=== PATIENT | female | born 1955 | race African-American/Black ===

== ENCOUNTER 2017-02-17 17:56 | Inpatient (IN) | payer OTHER ==
[~2017-02-17] VITALS: Ht 154.9 cm; Wt 51.7 kg
--- NOTE | ~2017-02-17 | HC ---
[facility] [place] [address] CONSULTATION Name: BRANDON CAMILO Room #: 457-P [facility] IN M.R.#: [id number] Admission: 02/17/17 Attend Phys: Krishan Sebastian MD Discharge: 02/20/17 Date of : 53 Report #: [id number] THIS REPORT FOR: //name// CC: Krishan Spence DATE OF SERVICE: 02/19/2017 HISTORY OF PRESENT ILLNESS: This is a 61-year-old female patient who was reevaluated by me today for altered mental status as well as left-sided weakness. She is a poor historian and does not know the duration of this. She indicated that it has come on recently. Nothing makes it better or worse. It came on spontaneously. That has not progressed any. She does not believe she has much alteration of mental status but other people have noticed it. PHYSICAL EXAMINATION: NEUROLOGICAL: Indicates that she is alert. She is responsive. Her speech looks intact and her memory and fund of knowledge is at her baseline. Cranial nerve examination 2 through 12 was attempted. It still shows question of weakness on the left side of the face. Rest of it is unremarkable. His neuromuscular examination showed weakness on the left side of the body, but is otherwise unremarkable. CARDIOVASCULAR: She does not appear to have any definite evidence for any abnormality of the heart sounds or any loud murmur. RESPIRATORY: She has no respiratory difficulty. There are no significant rhonchi. VITAL SIGNS: Her blood pressure is 154/71, respirations 16, pulse is 61 and temperature is 98.3. LABORATORY DATA: Her MRI of the brain was reviewed and I discussed with her. It does show pretty extensive changes. Sometime a small change there would be difficult to see. IMPRESSION: There is no definite diagnosis, which is present in this patient and she feels better. She moves the left side better. It is possible she had an ischemic went on the left side and difficult to be certain. I discussed the situation with her and I told her that instead of doing some more workup, we will just observe her and see how she does with the physical and occupational therapy. We got such an extensive changes in the brain, I did order some more blood workup to look for any predisposition for vascular problems as well as an echocardiogram. [address] [address] CONSULTATION Name: BRANDON CAMILO Room #: 457-[facility] IN [facility].#: [id number] Admission: 02/17/17 Attend Phys: Krishan Sebastian MD Discharge: 02/20/17 Date of : 53 Report #: [id number] Thank you very much for this referral and will follow the patient along with you. <ELECTRONICALLY SIGNED> By: Kennedy Vincent MD 02/22/17 1926 1835 1904 Kennedy Vincent MD /nt
--- NOTE | ~2017-02-17 | HC ---
[facility] [place] [address] CONSULTATION Name: BRANDON CAMILO Room #: 457-P [facility] IN M.R.#: [id number] Admission: 02/17/17 Attend Phys: Krishan Sebastian MD Discharge: 02/20/17 Date of : 53 Report #: [id number] THIS REPORT FOR: //name// CC: Krishan Spence DATE OF SERVICE: 02/18/2017 HISTORY OF PRESENT ILLNESS: This is a 61-year-old female patient who was evaluated by me for weakness on the left side. This patient is a poor historian and none of the family member is available. Part of the history is taken from the record and part of the history is taken by talking to the patient. She was brought to Emergency Room because she was not feeling right. She also had some ambulation difficulty and weakness on the left side was noticed. It is not certain how long this weakness is going on and the duration is not clear. The weakness is moderate what she also has a neglect there and difficulty with walking secondary to this weakness and neglect is significant. She does not know anything which makes it better or worse. She does not think she is becoming worse. It came spontaneously without any trauma and is not associated with any scene or any other abnormality. Her history is confusing that before this happened, she was also using a cane or a walker, but she cannot tell me why she was doing that. REVIEW OF SYSTEMS: Indicates she had a brain tumor. It is not clear what the brain tumor was. She thinks she was in [facility] and it was about 2-3 years ago. She has a history of bipolar disorder. She had a vocal cord paralysis and she had a tube put in according to her. It is not clear why this vocal cord paralysis occurred in this patient. I carried out this 14-point review of systems in this patient, but that is all I can get. She denies any new eye, ENT, cardiac, respiratory, GI, , musculoskeletal, constitutional, dermatological, hematological symptom. She does complain of psychiatric symptom, but she does not think she is any different than her baseline and that is a different history than she provided to other people who took the history in this patient. She does not have any new allergic symptoms or any new throat symptoms. PAST MEDICAL HISTORY: Positive for a brain tumor. FAMILY HISTORY: Negative for early age stroke. SOCIAL HISTORY: Indicates that she denies the use of tobacco, but does have a history of using alcohol. It is not clear from her description how much she drinks alcohol. PHYSICAL EXAMINATION: Indicates she is alert. She is responsive. She was able [address] [address] CONSULTATION Name: BRANDON CAMILO Room #: 457-P [facility] IN M.R.#: [id number] Admission: 02/17/17 Attend Phys: Krishan Sebastian MD Discharge: 02/20/17 Date of : 53 Report #: [id number] to tell me what month, what date it was and she was able to name the president. Memory is somewhat diminished, but she was still able to recall many of the events. Similarly fund of knowledge is somewhat diminished, but I do not know whether it falls in the dementia range or not, she will need more workup for that. Her speech looks intact. Cranial nerve examination 2-12 is unremarkable except for possible left facial palsy. Neuromuscular examinations indicate she is weak on the left side. I believe she has a position sense, but I am not certain because she could not cooperate. Reflexes are slightly asymmetrical and tone looks symmetrical. There is no cerebellar sign. There is no papilledema. There is no carotid bruit. There is no meningeal sign. She is reasonably well-built individual who does not have any dysmorphic features of eyes, ears and face. Her hearing and visions are adequate. Her affect looks flat. She speaks very softly because of previous vocal cord paralysis. She does not have any thyroid mass. Cardiac examination demonstrates unremarkable heart sounds and no murmur. No respiratory difficulty was noticed and there were no rhonchi on either side. Her pulses are difficult to feel, but she has no edema, cyanosis or jaundice. Blood pressure is 133/49, respiration is 16, pulse is 81, temperature is 97.9. I did not make her walk because she looks weak on the left side and we will ask the physical therapy help to do that. LABORATORY DATA: Indicate white count is normal at 6.4. Her sodium is 146, which is a trace high. It is not sure whether she was hydrating her well or not. She did have a CT scan of the head. CT scan of the head was reviewed and she does have a suspicion for a stroke on the right side and that will correlate with this patient's symptoms. IMPRESSION: 1. Possible right hemispheric cerebrovascular accident causing neglect and weakness on the left side. 2. History of bipolar. 3. History of tumor, but I reviewed the patient's record. Neither she shows tumor on the present CT nor the one which done a few years ago at this place. That is an incidental history which need to be readdressed later on if we can find the records from other facility. 4. Her rest of the workup will depend upon what we find in this patient. We may have to work up further for her altered mental status depending upon what the workup shows. She is on multiple medications including Topamax and clonazepam and if she takes the dosing properly, she can get confused. I am not sure why she is on those medications because she cannot tell and hopefully, we can contact the family to get further history. RECOMMENDATIONS: 1. MRI of the brain. 2. MRA of the head. [facility] [address] [place] [address] CONSULTATION Name: BRANDON CAMILO Room #: 457-P [facility] IN [facility].#: [id number] Admission: 02/17/17 Attend Phys: Krishan Sebastian MD Discharge: 02/20/17 Date of : 53 Report #: [id number] 3. MRA of the neck. 4. EEG. 5. TSH and vitamin B12. 6. We will reevaluate to see if we need an MRI of the brain with contrast in this patient. 7. If the stroke is confirmed, then she will need for workup for her stroke. I discussed all of it with the patient and discussed the plan we are going to follow. She understands it and she would like to continue with this plan and we will discuss tomorrow with her once the results of this test are available. Thank you very much for this referral. <ELECTRONICALLY SIGNED> By: Kennedy Vincent MD 02/22/17 1926 1007 1231 Kennedy Vincent MD /nt
--- NOTE | ~2017-02-17 | HC ---
[facility] [place] [address] CONSULTATION Name: BRANDON CAMILO Room #: 457-P [facility] IN ..#: [id number] Admission: 02/17/17 Attend Phys: Krishan Sebastian MD Discharge: 02/20/17 Date of : 54 Report #: [id number] THIS REPORT FOR: //name// CC: Krishan Spence HISTORY OF PRESENT ILLNESS: The patient is a 61-year-old female who was admitted with left-sided weakness, noted to have dizziness and falling. CT of the head was negative for acute changes. She is going to be undergoing an MRI scan. PAST MEDICAL HISTORY: Includes a brain tumor in approximately 2009, for which she apparently underwent Cyberknife surgery on the left. Apparently, this was done at [facility], although she was unsure of it was [facility] or [facility]. She does have a history of bipolar disorder and paralyzed vocal cord. MEDICATIONS: Please see the full medication listing. SOCIAL HISTORY: Living in an apartment alone. Did not utilize gait aids. Apparently, there was a caregiver that came daily to help with chores. She was noted be independent with ADLs. She does have a son and daughter and grand kids in the area. REVIEW OF SYSTEMS: Did not offer any current complaints of chest pain, shortness of breath or abdominal discomfort. No focal extremity pain complaints. She feels she still has left-sided weakness and has not significantly improved or change since admission. PHYSICAL EXAMINATION: GENERAL: A 61-year-old slender -[place] female, in no obvious distress. She is only a fair historian. VITAL SIGNS: Last recorded temperature 97.9, pulse 81, respirations 16, and blood pressure 133/49. NEUROLOGIC: The patient is alert. Facies appeared to be symmetric. EOMs appeared to be full. EXTREMITIES: She has functional range of motion of both upper and lower extremities. Appears to have strength a grade 4- to 4/5, right upper and right lower extremity. Left upper extremity is probably a grade 4-, left lower extremity is 4-. She did reasonably well with [id number]. There was no clonus at the ankle. Sensory examination, there might be slight decreased left side with hemisensory testing. She was contact guard with sit to stand. She ambulated 6 steps handheld assistance. Therapy thought she might have some right-sided neglect. ASSESSMENT: A 61-year-old white female with the following problem list: 1. Left-sided weakness with dizziness and falling. Work[place] [address] CONSULTATION Name: BRANDON CAMILO Room #: 457-P [facility] IN ..#: [id number] Admission: 02/17/17 Attend Phys: Krishan Sebastian MD Discharge: 02/20/17 Date of : 53 Report #: [id number] currently pending. 2. Past history of a brain tumor, apparently underwent CyberKnife surgery on the left side in approximately 2009. 3. Prior history of a paralyzed vocal cord. 4. History of bipolar disorder. 5. Past history of a brain aneurysm. 6. Hypertension. PLAN: Work up is underway as noted above. Therapy evaluations are underway. We will be glad to follow along regarding her rehab therapy needs. Note that PT and speech are involved and have added OT orders. <ELECTRONICALLY SIGNED> By: Jewel Nugent MD 02/22/17 1539 1128 1351 Jewel Nugent MD /nt
--- NOTE | ~2017-02-17 | EKG ---
[address] [place] [address] ELECTROCARDIOGRAM REPORT Name: BRANDON CAMILO Room #: 457-P ADM IN M.R.#: [id number] Admission: 02/17/17 Attend Phys: Krishan Sebastian MD Discharge: Date of : 53 Report #: [id number] THIS REPORT FOR: //name// [facility] ED Test Date: 2017-02-17 Test Time: 18:16:57 Pat Name: BRANDON CAMILO Department: Room: [facility] Gender: F Instrument Repair Specialist: lavern : 1955 Requested By: Ronna Márquez Order Number: [id number] MD: Chris Bailey Measurements Intervals [place] Rate: 93 P: 45 IA: 167 QRS: 52 QRSD: 78 T: 31 QT: 357 QTc: 445 Interpretive Statements Sinus rhythm No significant abnormality Baseline wander in lead(s) V2 No previous ECG available for comparison Electronically Signed On 02-18-2017 9:17:12 CDT by Chris Bailey [email or web address] <ELECTRONICALLY SIGNED> By: Chris Bailey MD, [facility] 02/18/17 0917 D: 03/1815 15 Chris Bailey MD, FACC /EPI
[~2017-02-17 17:56] MED LIST: CLONAZEPAM 1 MG1 M1 PO; COZAAR 50 MG TA50 M2 PO; PRAZOSIN HCL1 MG PO; TOPAMAX100 MG PO; TOPROL XL50 MG PO; TRAZODONE 150150 M1 PO
[2017-02-17 18:01] VITALS: BP 145/80
[2017-02-17 19:18] LABS: ABSOLUTE NEUTROPHILS 3.3 thou/uL (1.4-8.2); BASOPHILS 0.7 % (0.0-2.0); HEMATOCRIT 33.6 % (37.0-47.0); HEMOGLOBIN 10.7 gm/dL (12.0-15.0); LYMPHOCYTES 34.5 % (24.0-44.0); MCH 24.3 pg (26.0-34.0); MONOCYTES 10.5 % (1.0-8.0); PLATELET COUNT 198 thou/uL (150-400); POLYS 51.3 % (36.0-66.0); RBC 4.42 mil/uL (4.20-5.00); WBC 6.4 thou/uL (4.0-11.0)
[2017-02-17 19:22] LABS: MANUAL DIFF NO
[2017-02-17 19:29] LABS: PROTIME 10.8 Seconds (9.3-11.4)
[2017-02-17 19:35] LABS: ALBUMIN 3.1 g/dL (3.4-5.0); ALKALINE PHOSPHATASE 73 U/L (46-116); ANION GAP 7 mmol/L (7-16); BUN 11 mg/dL (7-18); CHLORIDE 109 mmol/L (98-107); CO2 30 mmol/L (21-32); CREATININE 0.8 mg/dL (0.6-1.3); GLUCOSE 101 mg/dL (70-99); POTASSIUM 3.7 mmol/L (3.5-5.1); SGOT 19 U/L (15-37); SGPT 32 U/L (30-65); SODIUM 146 mmol/L (136-145); TOTAL BILIRUBIN 0.1 mg/dL (<0.1-1.0); TOTAL PROTEIN 6.2 g/dL (6.4-8.2); TROPONIN-I < 0.04 ng/mL (<0.04-0.07)
[2017-02-17 20:00] VITALS: BP 126/57
[2017-02-17 20:23] LABS: URINE BILIRUBIN NEGATIVE (Negative); URINE BLOOD NEGATIVE (Negative); URINE COLOR YELLOW; URINE GLUCOSE-RANDOM* NEGATIVE (Negative); URINE KETONES NEGATIVE (Negative); URINE NITRITE NEGATIVE (Negative); URINE PROTEIN (DIPSTICK) NEGATIVE (Negative); URINE SPECIFIC GRAVITY 1.025 (1.003-1.035)
[2017-02-17 22:44] LABS: TSH 0.454 uIU/mL (0.358-3.740)
[2017-02-18] VITALS: BP 117/41
[2017-02-18 04:00] VITALS: BP 131/57
[2017-02-18 07:28] VITALS: BP 133/49
[2017-02-18 11:54] VITALS: BP 127/61
[2017-02-18 15:26] VITALS: BP 148/64
[2017-02-18] MEDS ORDERED: MELATONIN3 MG PO (17:07)
[2017-02-18] MEDS ORDERED: CELEXA20 MG PO (17:08)
[2017-02-18] MEDS ORDERED: BENZTROPINE MES1 MG PO (17:08)
[2017-02-18] MEDS ORDERED: HALDOL 0.5 MG0.5 MG PO (17:09)
[2017-02-18 19:47] VITALS: BP 132/59
[2017-02-19 03:34] VITALS: BP 128/69
[2017-02-19 05:33] LABS: HEMATOCRIT 33.2 % (37.0-47.0); HEMOGLOBIN 10.5 gm/dL (12.0-15.0); MCH 24.2 pg (26.0-34.0); MCHC 31.7 g/dL (28.0-37.0); MCV 76.3 fL (80.0-100.0); RBC 4.35 mil/uL (4.20-5.00); RDW 14.7 % (10.5-14.5); WBC 5.5 thou/uL (4.0-11.0)
[2017-02-19 05:55] LABS: CALCIUM 8.2 mg/dL (8.5-10.1); CREATININE 0.6 mg/dL (0.6-1.3); POTASSIUM 3.8 mmol/L (3.5-5.1)
[2017-02-19 08:12] VITALS: BP 145/56
[2017-02-19 12:18] VITALS: BP 141/62
[2017-02-19 15:23] VITALS: BP 154/71
[2017-02-19 19:59] VITALS: BP 146/72
[2017-02-19] MEDS ORDERED: SEROQUEL 50 MG50 MG PO ×2 (21:16)
[2017-02-20] MEDS ORDERED: SEROQUEL 50 MG50 MG PO ×2 (00:06→00:10)
[2017-02-20] MEDS ORDERED: LAMICTAL100 MG PER TUBE (00:26)
[2017-02-20] MEDS ORDERED: TOPROL XL25 MG PO (00:28)
[2017-02-20 04:00] VITALS: BP 132/64
[2017-02-20 06:42] LABS: HEMATOCRIT 31.4 % (37.0-47.0); HEMOGLOBIN 10.1 gm/dL (12.0-15.0); MCH 24.4 pg (26.0-34.0); MCHC 32.1 g/dL (28.0-37.0); MCV 75.8 fL (80.0-100.0); RBC 4.15 mil/uL (4.20-5.00); RDW 14.2 % (10.5-14.5); WBC 5.9 thou/uL (4.0-11.0)
[2017-02-20 06:58] LABS: CALCIUM 8.2 mg/dL (8.5-10.1); CREATININE 0.6 mg/dL (0.6-1.3); POTASSIUM 3.7 mmol/L (3.5-5.1)
[2017-02-20 08:29] VITALS: BP 142/70
[2017-02-20 10:22] VITALS: BP 142/70
[2017-02-20 12:58] VITALS: BP 137/59
[2017-02-20 14:48] VITALS: BP 142/70
== END 2017-02-20 16:33 | disposition home health service (06) | DRG 69 ==
LOC: ER 17:56 → EROBS 19:34 → 4W 19:34
PROVIDERS: Hospitalist; Internal Medicine; Nurse Practitioner; Physician Assistant
DX: G45.9 Transient cerebral ischemic attack, unspecified (principal); G92 Toxic encephalopathy; E44.1 Mild protein-calorie malnutrition; F31.9 Bipolar disorder, unspecified; J38.00 Paralysis of vocal cords and larynx, unspecified; I10 Essential (primary) hypertension; F41.9 Anxiety disorder, unspecified; R13.10 Dysphagia, unspecified; I67.1 Cerebral aneurysm, nonruptured; Z88.6 Allergy status to analgesic agent; W18.39XA Other fall on same level, initial encounter; Z88.0 Allergy status to penicillin; Z85.841 Personal history of malignant neoplasm of brain; Y93.89 Activity, other specified; Y92.89 Other specified places as the place of occurrence of the external cause; Z93.1 Gastrostomy status; Y99.8 Other external cause status
CPT/HCPCS: 10045; 10047

== ENCOUNTER → 2017-10-11 | Outpatient (CLI) | payer OTHER ==
[~2017-10-11] MED LIST changes: +BENZTROPINE MES1 MG PO; +CELEXA20 MG PO; +DURAGESIC1 EAC1 TRANSDERM; +HALDOL 0.5 MG0.5 MG PO; +LAMICTAL100 MG PER TUBE; +MELATONIN3 MG PO; +SEROQUEL 50 MG50 MG PO; +TOPROL XL25 MG PO
== END ==
LOC: RAD 10:49
DX: M16.12 Unilateral primary osteoarthritis, left hip (principal)

== ENCOUNTER 2019-03-16 13:59 | Emergency (ER) | payer OTHER ==
[~2019-03-16] VITALS: Ht 152.4 cm; Wt 47.2 kg
[~2019-03-16 13:59] MED LIST changes: +ACETAMINOPHEN325 M1 PO; +BANOPHEN25 M1 PO; +CLONAZEPAM 0.50.5 M1 PO; +COZAAR 25 MG TA25 M2 PO; +DEPAKOTE 250MG250 M1; +DEPAKOTE ER500 MG PO; +HALOPERIDOL 1 MG1 MG PO; -LAMICTAL100 MG PER TUBE; +LAMICTAL100 MG PO; +LITHIUM CARBON150 MG PO; +PRAZOSIN 1 MG CA1 MG PO; +PRENATAL PO; +REMERON15 MG PO; +SEROQUEL 100 M100 M1 PO; +TRAZODONE HCL50 MG PO; +VITAMIN B-1100 M2 PO; +VITAMIN D1000 UNI1 PO; +ZOFRAN ODT4 M1 PO
[2019-03-16] MEDS ORDERED: TRAZODONE HCL100 MG PO (14:27)
[2019-03-16] MEDS ORDERED: COZAAR 25 MG TA25 M1 PO (14:27)
[2019-03-16] MEDS ORDERED: PROZAC20 MG PO (14:27)
[2019-03-16] MEDS ORDERED: LOPRESSOR50 PO (14:27)
[2019-03-16] MEDS ORDERED: MINIPRESS1 MG PO (14:28)
[2019-03-16] MEDS ORDERED: REMERON15 MG PO (14:28)
[2019-03-16 15:17] LABS: HEMOGLOBIN 12.6 gm/dL (12.0-15.0); MCV 78.7 fL (80.0-100.0); WBC 6.2 thou/uL (4.0-11.0)
[2019-03-16 15:19] LABS: HEMATOCRIT 38.9 % (37.0-47.0); MCH 25.5 pg (26.0-34.0); MCHC 32.4 g/dL (28.0-37.0); PLATELET COUNT 191 thou/uL (150-400); RBC 4.94 mil/uL (4.20-5.00); RDW 16.9 % (10.5-14.5)
[2019-03-16 15:27] LABS: ANION GAP 12 mmol/L (7-16); BUN 17 mg/dL (7-18); CALCIUM 9.3 mg/dL (8.5-10.1); CHLORIDE 108 mmol/L (98-107); CO2 25 mmol/L (21-32); CREATININE 0.7 mg/dL (0.6-1.0); GLUCOSE 82 mg/dL (74-106); POTASSIUM 4.3 mmol/L (3.5-5.1); SODIUM 145 mmol/L (136-145)
[2019-03-16 15:37] LABS: ALBUMIN 3.8 g/dL (3.4-5.0); SGOT 22 U/L (15-37); SGPT 15 U/L (30-65); TOTAL BILIRUBIN 0.5 mg/dL (<0.1-1.0); TOTAL PROTEIN 7.2 g/dL (6.4-8.2); TROPONIN-I <0.06 ng/mL (<0.06)
[2019-03-16 15:57] LABS: PLATELET ESTIMATE NORMAL
[2019-03-16 16:17] VITALS: BP 170/63
--- NOTE | 2019-03-17 08:12 | EKG ---
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: : 1955 Requested By: Erin Shanks Order Number: [id number] MD: Kevin Brenner Measurements Intervals [place] Rate: 56 P: 53 MD: 162 QRS: 35 QRSD: 96 T: 32 QT: 475 QTc: 459 Interpretive Statements Sinus rhythm Compared to ECG 07/26/2018 17:07:58 No significant changes Electronically Signed On 03-17-2019 8:12:13 CDT by Kevin Brenner [email or web address] ��������������������������������������������� <ELECTRONICALLY SIGNED> ���������������������������������������� By: Kevin Brenner MD ��������������������������������������������� 03/17/19 0812 1451 1451 MD KHURRAM Pardo
== END 2019-03-16 16:18 | disposition home or self-care (01) ==
LOC: ER 13:59
PROVIDERS: Nurse Practitioner Family
DX: F17.210 Nicotine dependence, cigarettes, uncomplicated (principal); Z86.73 Personal history of transient ischemic attack (TIA), and cerebral infarction without residual deficits; Z79.899 Other long term (current) drug therapy; Z88.0 Allergy status to penicillin; Z88.5 Allergy status to narcotic agent; Z88.6 Allergy status to analgesic agent

== ENCOUNTER 2020-02-10 17:06 | Emergency (ER) | payer OTHER ==
[~2020-02-10] VITALS: Ht 152.4 cm; Wt 47.2 kg
[~2020-02-10 17:06] MED LIST changes: +COZAAR 25 MG TA25 M1 PO; +LOPRESSOR50 PO; +MINIPRESS1 MG PO; +PROZAC20 MG PO; +TRAZODONE HCL100 MG PO
[2020-02-10 17:30] LABS: HEMATOCRIT 35.4 % (37.0-47.0); HEMOGLOBIN 11.3 gm/dL (12.0-15.0); MCH 26.3 pg (26.0-34.0); MCHC 31.8 g/dL (28.0-37.0); MCV 82.7 fL (80.0-100.0); PLATELET COUNT 153 thou/uL (150-400); RBC 4.28 mil/uL (4.20-5.00); RDW 15.7 % (10.5-14.5); WBC 5.1 thou/uL (4.0-11.0)
[2020-02-10 17:38] LABS: ANION GAP 8 mmol/L (7-16); BUN 9 mg/dL (7-18); CALCIUM 7.7 mg/dL (8.5-10.1); CHLORIDE 109 mmol/L (98-107); CO2 25 mmol/L (21-32); CREATININE 0.6 mg/dL (0.6-1.0); GLUCOSE 65 mg/dL (74-106); POTASSIUM 3.2 mmol/L (3.5-5.1); SODIUM 142 mmol/L (136-145)
[2020-02-10 17:48] LABS: DIRECT BILIRUBIN < 0.1 mg/dL (<0.1-0.2); SGOT 13 U/L (15-37); SGPT 10 U/L (30-65); TOTAL BILIRUBIN 0.1 mg/dL (<0.1-1.0); TROPONIN-I <0.06 ng/mL (<0.06)
[2020-02-10 18:08] LABS: ABSOLUTE NEUTROPHILS 2.7 thou/uL (1.4-8.2); ANISOCYTOSIS 1+
[2020-02-10 18:09] LABS: TARGET CELLS FEW
[2020-02-10 19:12] LABS: URINE BILIRUBIN NEGATIVE (Negative); URINE BLOOD NEGATIVE (Negative); URINE CLARITY CLEAR; URINE COLOR YELLOW; URINE GLUCOSE-RANDOM* NEGATIVE (Negative); URINE KETONES NEGATIVE (Negative); URINE LEUKOCYTES-REFLEX NEGATIVE (Negative); URINE NITRITE-REFLEX NEGATIVE (Negative); URINE PROTEIN (DIPSTICK) NEGATIVE (Negative); URINE UROBILINOGEN 0.2 E.U./dl (0.2-1.0)
[2020-02-10 19:21] LABS: AMP/METHAMP Negative (Negative); BARBITURATES Negative (Negative); BENZODIAZEPINES Negative (Negative); COCAINE Negative (Negative); METHADONE Negative (Negative); OPIATES Negative (Negative); PCP Negative (Negative)
[2020-02-10 20:06] VITALS: BP 170/63
--- NOTE | 2020-02-11 08:16 | EKG ---
[facility] [place] [address] ELECTROCARDIOGRAM REPORT Name: BRANDON CAMILO Room #: DEP [facility]#: [id number] Admission: 02/10/20 Attend Phys: Discharge: 02/10/20 Date of : 53 Report #: [id number] THIS REPORT FOR: cc: Jerald Spence MD, Michael B. MD Couchonnal, Luis F. MD ~ THIS REPORT FOR: //name// [facility] ED Test Date: 2020-02-10 Test Time: 18:19:19 Pat Name: BRANDON CAMILO Department: Room: Gender: Retail Worker: [facility] : 1955 Requested By: Quirino Contreras Order Number: [id number] : Kevin Brenner Measurements Intervals [place] Rate: 60 P: 82 MA: 179 QRS: 64 QRSD: 84 T: 47 QT: 478 QTc: 478 Interpretive Statements Sinus rhythm Baseline wander in lead(s) II,aVR,aVF Compared to ECG 03/16/2019 14:51:17 No significant changes Electronically Signed On 02-11-2020 8:15:13 CDT by Kevin Brenner [email or web address] <ELECTRONICALLY SIGNED> By: Kevin Brenner MD 02/11/20 0815 18 18 Kevin Brenner MD /EPI
== END 2020-02-10 20:06 | disposition home or self-care (01) ==
LOC: ER 17:06
PROVIDERS: Nurse Practitioner
DX: T14.8XXA Other injury of unspecified body region, initial encounter (principal); R07.9 Chest pain, unspecified; M54.9 Dorsalgia, unspecified; F10.10 Alcohol abuse, uncomplicated; I10 Essential (primary) hypertension; Z79.899 Other long term (current) drug therapy; Z88.6 Allergy status to analgesic agent; Z88.0 Allergy status to penicillin; Z86.73 Personal history of transient ischemic attack (TIA), and cerebral infarction without residual deficits; W18.39XA Other fall on same level, initial encounter; Y90.9 Presence of alcohol in blood, level not specified; Y93.89 Activity, other specified; Y92.89 Other specified places as the place of occurrence of the external cause; Y99.8 Other external cause status

== ENCOUNTER 2020-05-23 12:20 | Emergency (ER) | payer OTHER ==
[~2020-05-23] VITALS: Ht 167.6 cm; Wt 52.2 kg
[2020-05-23 12:23] VITALS: BP 193/63
[2020-05-23] MEDS ORDERED: ZOFRAN ODT4 MG PO (15:28)
[2020-05-23] MEDS ORDERED: NORCO 5-325 TA1 EAC1 PO (15:28)
== END 2020-05-23 16:06 | disposition home or self-care (01) ==
LOC: ER 12:20
DX: S52.022A Displaced fracture of olecranon process without intraarticular extension of left ulna, initial encounter for closed fracture (principal); I10 Essential (primary) hypertension; F31.9 Bipolar disorder, unspecified; Z86.73 Personal history of transient ischemic attack (TIA), and cerebral infarction without residual deficits; Z85.841 Personal history of malignant neoplasm of brain; Z79.899 Other long term (current) drug therapy; Z88.6 Allergy status to analgesic agent; Z88.5 Allergy status to narcotic agent; Z88.0 Allergy status to penicillin; W01.0XXA Fall on same level from slipping, tripping and stumbling without subsequent striking against object, initial encounter; Y93.02 Activity, running; Y92.098 Other place in other non-institutional residence as the place of occurrence of the external cause; Y99.8 Other external cause status

== ENCOUNTER 2021-08-10 12:50 | Inpatient (IN) | payer MEDICARE, OTHER ==
[~2021-08-10] VITALS: Ht 152.4 cm; Wt 45.9 kg
--- NOTE | ~2021-08-10 | EMS ---
[address] [address] EMS Patient Care Report Name: BRANDON CAMILO Room #: 464-P ADM IN M.R.#: [id number] Admission: 08/10/21 Attend Phys: Deja Basilio Discharge: Date of : 53 Report #: [id number] THIS REPORT FOR: //name// Report Transmitted: 08/11/2021 09:50 EMS Care Summary [place], [place]/[facility] Incident [id number] @ 08/10/2021 12:20 Incident Location [address] [facility] Patient BRANDON CAMILO Female, 65 Years 1955 Patient Address [address] [place] [address] Patient History Hypertension (HTN),Bipolar II Disorder,Brain Tumor, Patient Allergies Aspirin,Codeine,Penicillin allergy,Morphine, Chief Complaint LEG PAIN Disposition Transported No Lights/Marceline Dispatch Reason Falls Transported To [facility] Narrative ARRIVED TO FIND PT STANDING IN THE BATHROOM. PT STATES SHE FELL TODAY, AND IS FEELING WEAK. PT STATES SHE HIT HER HEAD, NO LOSS OF CONCIOUSNESS, NO BLOOD THINNER. PT ASSISTED TO COT, SECURED WITH STRAPS X2, LOADED WITHOUT INCIDENT. ALS ASSESSMENT, VITALS OBTAINED. [address] [address] EMS Patient Care Report Name: BRANDON CAMILO Room #: 464-P ADM IN M.R.#: [id number] Admission: 08/10/21 Attend Phys: Deja Basilio Discharge: Date of : 53 Report #: [id number] ENROUTE, PT CONDITION UNCHANGED. ARRIVED. PT TAKEN INSIDE ON COT TO ER TRIAGE. PT MOVED TO WHEELCHAIR. REPORT GIVEN TO NURSE, PT CARE TRANSFERRED. Initial Vitals @12:42P: 72,R: 16,BP: 144/84,Pain: 4/10,GCS: 15,CO: 11,SpO2: 93,Revised Trauma: 12, @12:35P: 77,R: 16,BP: 162/69,Pain: 4/10,GCS: 15,SpO2: 97,Revised Trauma: 12, Assessments @12:27MENTAL:Person Oriented,Time Oriented,Place Oriented,Event Oriented,SKIN:HEENT:Head/Face: No Abnormalities,Neck/Airway: No Abnormalities,LUNG SOUNDS:General: No Abnormalities,Left Upper: No Abnormalities,Right Upper: No Abnormalities,Left Lower: No Abnormalities,Right Lower: No Abnormalities,ABDOMEN:General: No Abnormalities,Left Upper: No Abnormalities,Right Upper: No Abnormalities,Left Lower: No Abnormalities,Right Lower: No Abnormalities,PELVIS//GI:No Abnormalities,EXTREMITIES:Left Leg: Abnormal Sensation,Left Arm: No Abnormalities,Right Arm: No Abnormalities,Right Leg: No Abnormalities,PULSE:Radial: 2+ Normal,NEURO:No Abnormalities, Impression Injury of Lower Leg Procedures @12:27ALS AssessmentResponse: UnchangedSucceeded Timeline 12:17,Call Received 12:17,Dispatch Notified 12:20,Dispatched 12:20,En Route 12:25,On Scene 12:27,At Patient 12:27,ALS Assessment,Response: UnchangedSucceeded, 12:35,BP: 162/69 M,PULSE: 77,RR: 16 R,SPO2: 97 Ox,ETCO2: ,BG: ,PAIN: 4,GCS: 15, 12:39,Depart Scene 12:42,BP: 144/84 M,PULSE: 72,RR: 16 R,SPO2: 93 Ox,ETCO2: ,BG: ,PAIN: 4,GCS: 15, 12:46,At Destination 12:55,Call Closed Disclaimer v1.1 Copyright 2020 [employer] This EMS Care Summary contains data elements from the applicable legal record (which may be displayed differently). It is designed to provide pertinent information for the following purposes: continuity of care, clinical quality, [address] [address] EMS Patient Care Report Name: BRANDON CAMILO Room #: 464-P ADM IN ..#: [id number] Admission: 08/10/21 Attend Phys: Deja Basilio Discharge: Date of : 53 Report #: [id number] and state data reporting. The complete legal record is available to ED staff and administrators of the receiving hospital in [employer]'s Patient Tracker. All data is provided "as is."
[~2021-08-10 12:50] MED LIST changes: +NORCO 5-325 TA1 EAC1 PO; +ZOFRAN ODT4 MG PO
[2021-08-10 12:53] VITALS: BP 158/86
[2021-08-10 14:37] LABS: URINE BILIRUBIN NEGATIVE (Negative); URINE BLOOD NEGATIVE (Negative); URINE CLARITY CLEAR; URINE COLOR YELLOW; URINE GLUCOSE-RANDOM* NEGATIVE (Negative); URINE KETONES NEGATIVE (Negative); URINE LEUKOCYTES-REFLEX NEGATIVE (Negative); URINE NITRITE-REFLEX NEGATIVE (Negative); URINE PROTEIN (DIPSTICK) NEGATIVE (Negative); URINE UROBILINOGEN 0.2 E.U./dl (0.2-1.0)
[2021-08-10 14:53] LABS: RDW 14.8 % (10.5-14.5)
[2021-08-10 14:55] LABS: HEMATOCRIT 30.6 % (37.0-47.0); HEMOGLOBIN 9.8 gm/dL (12.0-15.0); MCH 29.4 pg (26.0-34.0); MCHC 32.1 g/dL (28.0-37.0); MCV 91.6 fL (80.0-100.0); PLATELET COUNT 221 thou/uL (150-400); RBC 3.34 mil/uL (4.20-5.00); WBC 3.8 thou/uL (4.0-11.0)
[2021-08-10 15:21] LABS: CALCIUM 8.8 mg/dL (8.5-10.1); CREATININE 0.8 mg/dL (0.6-1.0); POTASSIUM 4.5 mmol/L (3.5-5.1)
[2021-08-10 15:39] LABS: ABSOLUTE NEUTROPHILS 2.2 thou/uL (1.4-8.2); ATYPICAL LYMPHS 1 %
[2021-08-10] MEDS ORDERED: PRAZOSIN HCL2 MG PO (18:23)
[2021-08-10] MEDS ORDERED: OLANZAPINE20 MG PO (18:24)
[2021-08-10] MEDS ORDERED: COLACE100 MG PO (18:25)
[2021-08-10] MEDS ORDERED: AMITRIPTYLINE H10 M1 PO (18:26)
[2021-08-10] MEDS ORDERED: METOPROLOL SUC100 MG PO (18:26)
[2021-08-10] MEDS ORDERED: ALPRAZOLAM 0.0.25 M1 PO (18:29)
[2021-08-11 03:20] VITALS: BP 135/91
[2021-08-11 03:35] VITALS: BP 135/91
[2021-08-11 04:57] VITALS: BP 170/85
--- NOTE | 2021-08-11 07:59 | NUR ---
PT ARRIVED ON THE UNIT AT 0430. PT IS ALERT AND ORIENTED x4. PT WAS STABLE. PT WAS ORIENTED TO ROOMAND AND EDUCATED ON THE USE OF CALL LIGHT; PT VERBALIZED UNDERSTANDING. PT WAS INFORMED OF THE NEED TO SEND HOME MEDS TO PHARMACY AND PT CONCURRED. PT DID NOT VERBALIZE ANY CONCERNS. FALL PRECAUTIONS IN PLACE.
[2021-08-11 08:00] VITALS: BP 178/94
--- NOTE | 2021-08-11 09:33 | EKG ---
[place] [address] [facility] [place] [address] ELECTROCARDIOGRAM REPORT Name: BRANDON CAMILO Room #: 464-P ADM IN M.R.#: [id number] Admission: 08/10/21 Attend Phys: Deja Basilio Discharge: Date of : 53 Report #: [id number] [facility] ED Test Date: 2021-08-10 Test Time: 14:10:39 Pat Name: BRANDON CAMILO Department: Room: 464 Gender: F Electrician Journeyman Wireman: lisa : 1955 Requested By: Pierce Mckenzie Order Number: [id number] MD: Stephan Oswald Measurements Intervals [place] Rate: 71 P: 102 CT: 174 QRS: 66 QRSD: 86 T: 45 QT: 443 QTc: 482 Interpretive Statements Sinus rhythm Probable left atrial enlargement Borderline T abnormalities, anterior leads Borderline prolonged QT interval Compared to ECG 02/10/2020 18:19:19 T-wave abnormality now present Electronically Signed On 08-11-2021 9:33:38 CDT by Stephan Oswald [email or web address] <ELECTRONICALLY SIGNED> By: Stephan Oswald MD 08/11/2133 D: 091409 1410 Stephan Oswald MD /MARLENE
--- NOTE | 2021-08-11 11:40 | NUR ---
Marcos visited with hosea at bedside, intro to cm and dcp. She reported she lives alone and has case manage with clarissaver angelia silveira, no longer drives. been to skilled rehab in past and would go if needed it per hosea.
--- NOTE | 2021-08-11 12:14 | NUR ---
Assumed pt care this am vs stable, 1:1 sitter in the room. POC followed, diet and medications are well tolerated. Xray done this am as per MD order. Dc orders given , awaiting Dr. De La Vega for signs off. Prescriptions sent to the pharmacy, dc instructions given to pt. IV removed, cab vouccher to be given by case management.
[2021-08-11 15:49] VITALS: BP 129/78
--- NOTE | 2021-08-11 15:49 | NUR ---
Assumed pt care this am, left hip pain noted. Pt mentioend that she fell on Sat and thought nothing of it. Admission system assessment and med req completed. Pt went down for an x-ray and MRI in the am. POC followedwith no signs of distress.
[2021-08-11 21:57] VITALS: BP 115/68
--- NOTE | 2021-08-12 04:48 | NUR ---
ASSUMED PT CARE AT 1999.PT IS ALERT AND ORIENTED X4. PT HAS L HIP PAIN AND HAS MUSCLE WEAKNESS. PT USES BSC WITH ASSISTANCE. PT CAN SOMETIMES BE FORGETFUL WITH THE USE OF CALL LIGHT. PT DID NOT VERBALIZE ANY CONCERNS . MEDS GIVEN PER EMAR ORDERS. PT RE-EDUCATED ON THE USE OF CALL LIGHT FOR ASSISITANCE. FALL PRECAUTIONS IN PLACE. WILL CONTINUE TO MONITOR.
[2021-08-12 07:54] VITALS: BP 184/83
[2021-08-12 15:37] VITALS: BP 145/69
[2021-08-12 20:50] VITALS: BP 134/60
[2021-08-13 05:42] LABS: HEMATOCRIT 26.1 % (37.0-47.0); HEMOGLOBIN 8.4 gm/dL (12.0-15.0); MCH 29.7 pg (26.0-34.0); MCHC 32.3 g/dL (28.0-37.0); MCV 92.1 fL (80.0-100.0); RBC 2.84 mil/uL (4.20-5.00); RDW 14.6 % (10.5-14.5); WBC 3.8 thou/uL (4.0-11.0)
--- NOTE | 2021-08-13 07:26 | NUR ---
Assumed pt care at 1900. A/OX4,VSS. Denied pain on assessment though grimacing with movement states it's her left hip but declined need for pain meds. Up with AX1,GB/RW from chair to bed. Continent of B&B. IVF infuising via LFA w/o any problems.Fall precautions in place,calls approp for help.
[2021-08-13 08:51] VITALS: BP 168/76
--- NOTE | 2021-08-13 11:45 | NUR ---
DENIES C/O PAIN DURIN AM ASSESSMENT.ORIENTED TO PERSON,PLACE,NO TO DATE-APPETITE FAIR. LUNGS DIMINSHED IN BASES-NO COUGH NOTED OR REPORTED. TO/FROM BED AND CHAIR WITH ASSIST X1 AND TOLERATES ACTIVITY WELL. SMALL BM AFTER BREAKFAST-VOIDING PER BSC
[2021-08-13 16:27] VITALS: BP 131/63
--- NOTE | 2021-08-13 17:02 | NUR ---
CONTINUES TO DENY PAIN THIS SHIFT DESPITE NOTED FACIAL GRIMACING DURING TRANSFERS TO AND FROM TOILET AND CHAIR AT BEDSIDE -OFFERED TYLENOLPRN FOR HIP PAIN BUT REFUSES, UP IN CHAIR FOR MAJORITY OF AM AND FOR MEALS-CONTINUES TO NEED ENCOURAGEMENT TO TAKE PO FLUIDS. NOTED TO ATTEMPT TO GET UP ON OWN X2 TO USE BR DESPITE FREQUENT REMINDERS TO CALL FOR ASSIST. CONTINUE ON FALL PRECAUTIONS WITH BED ALARM AND CHAIR ALARMD.T ABOVE NOTED IMPULSIVE BEHAVIORS. LEFT FOERARM IV SITE WRAPPED WITH COBAN -INFUSING NS AT 75 CC/HR-NO NOTED OR REPORTED PAIN,REDNESS OR SWELLING TO SITE
[2021-08-13 20:39] VITALS: BP 135/59
--- NOTE | 2021-08-14 04:39 | NUR ---
ASSUMED PT CARE AT 1999. PT IS ALERT AND ORIENTED X4. PT DID NOT C/O PAIN. PT IS UPX1 TO THE BSC. VS ARE WITHIN THE NORMAL RANGE AND MED WERE GIVEN PER EMAR ORDERS. PT TOLERATING RA. NO VISIBLE SIGN OF DISTRESS NOTED. NO CONCERNS WERE VERBALIZED. FALL PRECAUTIONS IN PLACE. WILL CONTINUE TO TR.
[2021-08-14] MEDS ORDERED: FELODIPINE ER10 MG PO (10:04)
[2021-08-14 12:49] VITALS: BP 136/70
[2021-08-14 13:24] VITALS: BP 136/70
--- NOTE | 2021-08-14 13:43 | NUR ---
PHYSICIAN INDICATED THAT PT IS MEDICALLY STABLE TO DC HOME THIS DAY. CM SPOKE WITH PT AND SHE IS AWARE ADN AGREEABLE TO DC HOME WITH HH SERVICES. CM CALLED AND SPOKE WITH PT'S DTR CECE AND SHE IS AWARE AND AGREEABLE WITH PT DISCHARGING HOME TO HER APARTMENT WITH HH SERVCIES WELL. THEY HAD USED [facility] IN THE PAST AND WOULD LIKE TO USE [facility] UPON DC. CM NOTIFIED [facility] AND WILL FAX REFERRAL. PT'S DTR TO PROVIDE TRANSPORT HOME THIS AFTERNOON 1630.
--- NOTE | 2021-08-14 19:54 | NUR ---
PATIENT ALERT/ORIENTED X4. SEEN BY THERAPY. OKAY FROM A MEDICAL STAND POINT TO DISCHARGE. PATIENT REFUSING POST ACUTE STAY, REQUESTING TO GO HOME WITH HOME HEALTH. CASE MANAGEMENT ARRANGED. SPOKE WITH DAUGHTER WHO IS AGREEABLE. DISCHARGE PAPERWORK REVIEWED WITH PATIENT WHILE DAUGHTER WAS PRESENT IN ROOM. AWARE OF NEW MEDICATIONS AND SCRIPTS SENT TO PHARMACY. PATIENT DENIED ANY QUESTIONS OR CONCERNS. IV DISCONTINUED. DISCHARGED HOME WITH DAUGHTER.
--- NOTE | 2021-08-16 13:49 | HC ---
[facility] [place] [address] CONSULTATION Name: BRANDON CAMILO Room #: 464-P [facility] IN M.R.#: [id number] Admission: 08/10/21 Attend Phys: Deja Basilio Discharge: 08/14/21 Date of : 53 Report #: [id number] THIS REPORT FOR: cc: FAM - No family physician/PCP FAM - No family physician/PCP Shrari Morales MD ~ DATE OF SERVICE: 08/13/2021 ORTHOPEDIC CONSULT NOTE REASON FOR CONSULTATION: Left periprosthetic femur fracture. HISTORY OF PRESENT ILLNESS: The patient reports falling on 08/10/2021 because of weakness. She complained of left hip pain, was able to put weight on it, but was very painful per the patient, she was brought in via EMS. She was evaluated in the Emergency Department, diagnosed with a left greater trochanteric periprosthetic hip fracture and admitted to the hospital. I have subsequently been consulted. She reports only left lateral hip and groin pain. Reports that she has been able to get up to a chair with some hip pain, but she has been able to do it. REVIEW OF SYSTEMS: NEUROLOGIC: Denies numbness or tingling. MUSCULOSKELETAL: See HPI. Denies other injuries. PAST MEDICAL HISTORY: Significant for bipolar affective disorder, generalized weakness. ALLERGIES: ASPIRIN, CODEINE, MORPHINE, PENICILLINS. MEDICATIONS: Include hydrocodone, ondansetron, metoprolol, losartan, fluoxetine, trazodone, prazosin, mirtazapine. PAST SURGICAL HISTORY: PEG tube placement, some type of brain tumor treated with a "CyberKnife", left total hip arthroplasty. SOCIAL HISTORY: She lives by herself. Alcohol use is occasional. LABORATORY STUDIES: Done on 08/13/2021 show white blood cell count 3.8, hemoglobin 8.4, hematocrit 26.1, platelet count 166. Chemistry done on 08/10/2021 was all normal. Toxicology was negative for alcohol. COVID test was negative. PHYSICAL EXAMINATION: GENERAL: The patient was sleeping, but awakens easily. She was pleasant, alert, oriented, well-developed, but thin female in no acute distress. She was [facility] [address] [place] [address] CONSULTATION Name: BRANDON CAMILO Room #: 464-P [facility] IN [facility].#: [id number] Admission: 08/10/21 Attend Phys: Deja Basilio Discharge: 08/14/21 Date of : 53 Report #: [id number] lying in her hospital bed. VITAL SIGNS: Most recent vital signs show a temperature of 36.8, heart rate 84, respiratory rate 16, blood pressure 134/60, pulse oximetry 100% on room air. EXTREMITIES: Examination of her bilateral upper extremities: Skin is clean, dry and intact. Grossly normal sensory and motor exam. She moves both upper extremities without pain. There is no tenderness. Bilateral lower extremity examination: Skin is clean, dry and intact. Grossly normal sensory and motor exam. She moves her toes, moves her ankles. No pain with range of motion of the bilateral knees, legs, ankles or feet. No pain with right hip range of motion, some very mild pain with left hip range of motion. There is some tenderness over the greater trochanter. RADIOGRAPHS: AP pelvis and AP and lateral of the left hip reviewed by myself as well as the report was reviewed. There is a minimally displaced greater trochanteric fracture with stable femoral stem. IMPRESSION AND PLAN: A 65-year-old female with essentially nondisplaced periprosthetic greater trochanteric femur fracture with a stable implant. I discussed the diagnosis as well as treatment options. At this point, recommend weightbearing as tolerated with a walker. I will recommend that she follow up with one of my former [place] partners in 1-2 weeks. Questions were encouraged and answered to the best of my ability. <ELECTRONICALLY SIGNED> By: Sharri Morales MD 08/16/21 1349 [id number] Sharri Morales MD /nt
== END 2021-08-14 17:16 | disposition home health service (06) | DRG 536 ==
LOC: ER 12:50 → 4W 18:42 → EROBS 18:42 → 4W 08-11 04:25
PROVIDERS: Student in an Organized Health Care Education/Training Program; ADMIT Hospitalist; ATTEND Hospitalist
DX: S72.115A Nondisplaced fracture of greater trochanter of left femur, initial encounter for closed fracture (principal); M97.02XA Periprosthetic fracture around internal prosthetic left hip joint, initial encounter; I10 Essential (primary) hypertension; R27.0 Ataxia, unspecified; F31.9 Bipolar disorder, unspecified; Z96.642 Presence of left artificial hip joint; D64.9 Anemia, unspecified; Z60.2 Problems related to living alone; Z20.822 Contact with and (suspected) exposure to COVID-19; Z93.1 Gastrostomy status; F17.210 Nicotine dependence, cigarettes, uncomplicated; Z86.73 Personal history of transient ischemic attack (TIA), and cerebral infarction without residual deficits; Z88.6 Allergy status to analgesic agent; Z88.0 Allergy status to penicillin; Z88.8 Allergy status to other drugs, medicaments and biological substances; W18.39XA Other fall on same level, initial encounter; Y93.89 Activity, other specified; Y92.89 Other specified places as the place of occurrence of the external cause; Y99.8 Other external cause status
CPT/HCPCS: 10040